=== PATIENT | male | born 1950 | race Caucasian/White ===

== ENCOUNTER 2017-08-30 07:54 | Inpatient (IN) | payer OTHER ==
[2017-08-29 10:13] VITALS: BMI 27.7
[2017-08-30] VITALS (28 sets, daily range): BP systolic 99–125; BP diastolic 50–73; PULSE 70–92; RESP 11–20; Ht 181.6 cm; Wt 91.7 kg
[~2017-08-30] VITALS: Ht 181.6 cm; Wt 91.7 kg
[~2017-08-30 07:54] MED LIST: ATROPINE 1 MG/10 ML SYRINGE IV PRN; CEFAZOLIN 2 GM/50 ML (PMX) 50 ML IVPB SCH; DIPHENHYDRAMINE 50 MG INJ IV PRN; DULO60CA6 PO; EPHEDrine SULFATE 50 MG/5 ML SYG IV PRN; FENTAnyl 50 MCG/ML VIAL IV PRN; HYDROmorphONE (0.2 MG/ML) 10ML SYG IV PRN; LABETALOL HCL 20MG INJ IV PRN; MEPERIDINE 25 MG INJ IV PRN; MIDAZOLAM 1 MG/ML 2 ML INJ IV PRN; ONDANSETRON 4 MG INJ IV PRN; OXYCODONE/ACETAMINOPHEN (5/325) TAB PO PRN; SUGAMMADEX SODIUM 200 MG/2 ML VIAL IV ONE; TAMS0.4C2 PO; TRANEXAMIC ACID 1,000 MG in SOD CHLORIDE 0.9% 100 ML IV SCH; hydrALAzine 20 MG INJ IV PRN; morphine (1 MG/ML) 10ML SYRINGE IV PRN
[2017-08-30] MEDS ORDERED: ETOD400T PO (08:30)
[2017-08-30] MEDS ORDERED: ALEN70TA30 PO (08:31)
[2017-08-30] MEDS ORDERED: DEXAMETHASONE 4 MG/ML 1 ML INJ ONE (09:17)
[2017-08-30] MEDS ORDERED: MIDAZOLAM 1 MG/ML 2 ML INJ ONE ×2 (09:17→10:31)
[2017-08-30] MEDS ORDERED: PROPOFOL 20 ML ONE (09:17)
[2017-08-30] MEDS ORDERED: NEOSTIGMINE 3 MG/3 ML SYRINGE ONE (09:17)
[2017-08-30] MEDS ORDERED: LIDOCAINE 2% (SDV) 5 ML INJ ONE (09:17)
[2017-08-30] MEDS ORDERED: ONDANSETRON 4 MG INJ ONE (09:17)
[2017-08-30] MEDS ORDERED: FENTAnyl 50 MCG/ML VIAL ONE ×2 (09:17→10:30)
[2017-08-30] MEDS ORDERED: ROCURONIUM 50 MG INJ ONE (09:17)
[2017-08-30] MEDS ORDERED: GLYCOPYRROLATE 0.4 MG INJ ONE (09:17)
[2017-08-30] MEDS ORDERED: morphine SULFATE/PF (10 MG/10 ML) INJ ONE (10:22)
[2017-08-30] MEDS ORDERED: BUPIVACAINE 0.5%/EPI (SDV) 30 ML INJ ONE (10:22)
[2017-08-30] MEDS ORDERED: KETOROLAC 30 MG INJ ONE (10:22)
[2017-08-30] MEDS ORDERED: POLYMYXIN/BACITRACIN 1L IRRIG ONE (10:23)
--- NOTE | 2017-08-30 10:31 | HPN ---
Date/Time of Note Date/Time of Note DATE: 08/30/17 TIME: 10:31 Interval H&P Admission Note Pt. seen H&P reviewed: No system changes NEELAM TOSCANO PA-C Aug 30, 2017 10:31
[2017-08-30] MEDS ORDERED: BUPIVACAINE 0.5%/EPI (SDV) 30 ML INJ INJ ONE (11:09)
[2017-08-30] MEDS ORDERED: KETOROLAC 30 MG INJ IV ONE (11:10)
[2017-08-30] MEDS ORDERED: morphine SULFATE/PF (10 MG/10 ML) INJ EPI ONE (11:14)
[2017-08-30] MEDS ORDERED: ROPIVACAINE 0.5 % 30 ML VIAL ONE (11:45)
[2017-08-30] MEDS ORDERED: LIDOCAINE 2%/EPI 30 ML INJ ONE (11:46)
[2017-08-30] MEDS ORDERED: CEFAZOLIN 1 GM INJ ONE (12:01)
[2017-08-30] MEDS: TRANEXAMIC ACID 1,000 MG in SOD CHLORIDE 0.9% 100 ML IV SCH ×2 (12:38→13:25)
--- NOTE | 2017-08-30 12:48 | SIPON ---
Date/Time of Note Date/Time of Note DATE: 08/30/17 TIME: 12:45 Operative Report Preoperative Diagnosis left knee djd Postoperative Diagnosis SAME Operation/Procedure Performed Left total knee replacement Surgeon see signature line facility assistant Dr. Raji Cagle Second assist: NEELAM TOSCANO PA-C Anesthesia: spinal Estimated blood loss: 150 - 200 ml's Transfusion Required none Specimen bone Grafts/Implants DePuy 7 femur, 8 tibia, 12 poly, 38 patella Complications none SHAQ SÁNCHEZ Aug 30, 2017 12:48
--- NOTE | 2017-08-30 13:15 | PDOCDIS ---
Discharge Instructions DIAGNOSIS Discharge Diagnosis Status post left total knee arthroplasty CONDITION Patient Condition: Good HOME CARE INSTRUCTIONS: Diet Instructions: Regular ACTIVITY: Activity Restrictions: Slowly Increase Activity Rest between Activity Avoid heavy lifting No Sexual Activity Do not Drive Do not operate Machinery Do not operate Power Tool Avoid Heavy Housework Keep Limb Elevated (No pillows under the leg. You may apply pillows under the ankle to keep the leg in full extension while lying down.) Weight Bearing (Weight-bear as tolerated using front wheeled walker.) Bathing Restrictions: Shower (Mepilex should remain on until postoperative visit. Do not rub Mepilex dressing off.) FOLLOW UP/APPOINTMENTS Follow-up Plan Follow-up 10-14 days status post surgery at postoperative appointment given to you at your preoperative visit. NEELAM TOSCANO PA-C Aug 30, 2017 13:15
[2017-08-30] MEDS ORDERED: FLUMAZENIL 0.5 MG INJ ONE (13:29)
[2017-08-30] MEDS ORDERED: ASPIRIN (EC) 325 MG TAB PO ONE (13:30)
[2017-08-30] MEDS ORDERED: HYDROmorphONE 0.2 MG/ML PCA IV PRN (13:30)
[2017-08-30] MEDS ORDERED: MEPERIDINE 10 MG/ML 30 ML PCA IV PRN (13:30)
[2017-08-30] MEDS ORDERED: COUMADIN NOTE XX SCH (13:30)
[2017-08-30] MEDS ORDERED: NA PHOSPHATE/BIPHOS 133 ML ENEMA PR PRN (13:30)
[2017-08-30] MEDS ORDERED: TRANEXAMIC ACID 920 MG in SOD CHLORIDE 0.9% 100 ML IVPB ONE ×4 (13:30)
[2017-08-30] MEDS ORDERED: BETHANECHOL 25 MG TAB PO PRN (13:30)
[2017-08-30] MEDS ORDERED: NALOXONE (0.4 MG/ML) INJ IV PRN (13:30)
[2017-08-30] MEDS ORDERED: BISACODYL 10 MG SUPP PR PRN (13:30)
[2017-08-30] MEDS ORDERED: oxyCODONE 5 MG TAB PO PRN (13:30)
[2017-08-30] MEDS ORDERED: SENNA/DOCUSATE NA (8.6MG/50MG) TAB PO PRN (13:30)
[2017-08-30] MEDS ORDERED: ZOLPIDEM 5 MG TAB PO PRN (13:30)
[2017-08-30] MEDS ORDERED: DOCUSATE SODIUM 100 MG CAP PO ONE (13:30)
[2017-08-30] MEDS ORDERED: MAGNESIUM HYDROXIDE 30ML CUP PO PRN (13:30)
[2017-08-30] MEDS ORDERED: DIPHENHYDRAMINE 50 MG INJ IM PRN (13:30)
[2017-08-30] MEDS: CEFAZOLIN 1 GM/50 ML (PMX) 50 ML IVPB SCH ×2 (14:11→21:43)
[2017-08-30] MEDS: ONDANSETRON 4 MG INJ IV SCH ×2 (14:11→20:13)
[2017-08-30] MEDS: ACETAMINOPHEN 1000MG/100ML IV 100 ML IVPB SCH ×2 (14:15→21:10)
--- NOTE | 2017-08-30 15:28 | RADRPT ---
PROCEDURE: LEFT KNEE X-RAY CLINICAL INDICATION: Postop TECHNIQUE: Two views of the right knee were obtained. COMPARISON: None FINDINGS: The patient is status left knee hardware placement. There is near anatomic alignment . There are po stsurgical changes in the subcutaneous soft tissues. There is normal mineralization. No acute fract ure or dislocation is seen. IMPRESSION: 1. Postsurgical changes of the knee status post hardware placement, with near anatomic alignment. RPTAT: AARR Physician Fred Date Time Electronically viewed and signed by Physician Fred on 08/30/2017 15:28 VINCENT/
[2017-08-30] MEDS: DEXTROSE 5%-LR 1,000 ML IV SCH (15:40)
[2017-08-30] MEDS: oxyCODONE 5 MG TAB PO PRN ×2 (16:02→16:53)
--- NOTE | 2017-08-30 17:56 | OPR ---
Date/Time of Note Date/Time of Note DATE: 08/30/17 TIME: 17:51 Operative Report Procedure Date: Aug 30, 2017 Preoperative Diagnosis left knee DJD Postoperative Diagnosis same Operation/Procedure Performed left total knee replacement Surgeon see signature line Credentialing Specialist Dr. aRji Cagle Second Credentialing Specialist: NEELAM TOSCANO PA-C Anesthesia Type: spinal Estimated Blood Loss: 150 - 200 ml's Transfusion none Specimen bone Grafts/Implants DePuy 7 femur, 8 tibia, 38 patella, 12 poly Tubes/Drains none Complications none Pt Condition Post Procedure: stable Indications 67-year-old male with severe osteoarthritis of his left knee and no response to conservative treatment for 1 year Procedure Description The patient was placed supine on the operating room table. The left knee was prepped and draped in the usual manner. Examination of the left knee under anesthesia showed a flexion deformity of 10 and a varus deformity of 10. An anterior approach to the left knee was made. A mid vastus approach was made and the patella displaced laterally without everting it. Medial and lateral collateral ligaments were protected. Using intramedullary alignment, the distal femoral cut was made in 5 of valgus. The femur was prepared for a size 7 component from the Depuy knee system. The notch was cut in the distal femur to accommodate the posterior stabilized femoral component. Osteophytes were removed. The PCL was sacrificed and remnants of the menisci were removed. The tibia was cut using external alignment and the patella cut using a freehand technique. Trials were inserted including a 7 femur, 8 tibia and a 38 patella. 10 mm of polyethylene resulted in full range of motion with mild laxity. 12 mm of polyethylene were needed to create a stable knee from 0-120 with good balance and tracking. Trials were then removed. Antibiotic cement was mixed and final components cemented in place. Excess cement was removed and the knee injected with a combination of Marcaine and Toradol. The knee was closed in layers using #1 Vicryl for arthrotomy fascia, 2-0 Vicryl for subcutaneous tissue and 3-0 Monocryl for the skin. Patient was transferred to the recovery room in stable condition. SHAQ SÁNCHEZ Aug 30, 2017 17:56
--- NOTE | 2017-08-30 20:25 | PN ---
Date/Time of Note Date/Time of Note DATE: 08/30/17 TIME: 20:17 Assessment/Plan VTE Prophylaxis VTE Prophylaxis Intervention: other (Aspirin) Lines/Catheters IV Catheter Type (from Nrsg): Peripheral IV Urinary Cath still in place: Yes Reason Cath still needed: urinary retention Assessment/Plan Chief Complaint/Hosp Course Subjective: No distress. Pain controlled Objective: Vital signs stable Physical exam No pallor adenopathy Regular Clear Bowel sounds present nontender nondistended no rigidity or rebound guarding Left knee dressed mild edema Assessment/plan 1. Postop day 0 left total knee arthroplasty. Stable treat pain, anticoagulation per Ortho 2. DJD Problems: Exam/Review of Systems Vital Signs Vitals Vital Signs Date Time Temp Pulse Resp B/P Pulse Ox O2 Delivery O2 Flow Rate FiO2 08/30/17 20:13 98.6 87 20 120/65 98 08/30/17 18:00 Venturi Mask 2.0 Medications Medications Current Medications Dextrose/Lactated Ringer's (D5-Lr) 1,000 ml @ 80 mls/hr [id number] IV Last administered on 08/30/17 15:40; Admin Dose 80 MLS/HR; Start 08/30/17 at 13:07 Hydromorphone HCl (Dilaudid GANG RIDER) Q4PCA PRN IV SEVERE PAIN 8-10; Start at 13:30; Stop 08/31/17 at 13:29 Meperidine HCl (Demerol GANG RIDER) Q4PCA PRN IV SEVERE PAIN 8-10; Start 08/30/17 at 13:30; Stop 08/31/17 at 13:29 Oxycodone HCl (Roxicodone) 20 mg Q3H PRN PO PAIN LEVEL 8-10; Start 08/30/17 at 13:30 Oxycodone HCl (Roxicodone) 10 mg Q3H PRN PO PAIN LEVEL 4-7; Start 08/30/17 at 13:30 Oxycodone HCl 5 mg 5 mg Q3H PRN PO PAIN LEVEL 1-3 Last administered on 16:53; Admin Dose 5 MG; Start 08/30/17 at 13:30 Acetaminophen (Ofirmev 1000mg/ 100ml Iv) 100 ml @ 400 mls/hr Q8H IVPB Last administered on 08/30/17 14:15; Admin Dose 400 MLS/HR; Start 08/30/17 at 13: 30; Stop 09/01/17 at 05:44 Zolpidem Tartrate (Ambien) 5 mg HS PRN PO INSOMNIA; Start 08/30/17 at 13:30 Ondansetron HCl 4 mg 4 mg Q6H IV Last administered on 08/30/17 14:11; Admin Dose 4 MG; Start 08/30/17 at 13:30; Stop 08/31/17 at 07:31 Cefazolin Sodium (Ancef 1 Gm/50 ml (Pmx)) 50 ml @ 100 mls/hr Q8H IVPB Last administered on 08/30/17 14:11; Admin Dose 100 MLS/HR; Start 08/30/17 at 13: 30; Stop 08/31/17 at 05:59 Miscellaneous Information (Note) NOTE XX ; Start 08/30/17 at 13:30 Aspirin (Ecotrin) 325 mg DAILY PO ; Start 08/31/17 at 09:00 Celecoxib (Celebrex) 100 mg BID PO ; Start 08/31/17 at 09:00 Dexamethasone (Decadron) 4 mg DAILY@07 IV ; Start 08/31/17 at 07:00; Stop at 06:59 Pantoprazole (Protonix Tab) 40 mg DAILY@06 PO ; Start 09/01/17 at 06:00 Docusate Sodium/ Ferrous Fumarate (Cyrus-Sequels) 1 tab BID PO ; Start at 09:00 Docusate Sodium (Colace) 200 mg BID PO ; Start 08/31/17 at 09:00; Stop at 08:59 Simethicone (Mylicon) 80 mg TID PRN PO DISTENSION/GAS/BLOATING; Start at 13:30 Senna/Docusate Sodium (Senokot-S) 2 tab BID PRN PO CONSTIPATION; Start at 13:30 Magnesium Hydroxide (Milk Of Mag) 30 ml HS PRN PO CONSTIPATION; Start at 13:30 Bisacodyl (Dulcolax Supp) 10 mg DAILY PRN [place] CONSTIPATION; Start 08/30/17 at 13:30 Sodium Biphosphate/ Sodium Phosphate (Fleet Enema) 133 ml DAILY PRN [place] CONSTIPATION; Start 08/30/17 at 13:30 Diphenhydramine HCl (Benadryl) 25 mg Q4H PRN IM ITCHING OR RASH; Start at 13:30 Ketorolac Tromethamine (Toradol) 15 mg DAILY@06 PRN IV PAIN; Start 08/31/17 at 06:00; Stop 09/04/17 at 05:59 Bupivacaine HCl/ Epinephrine Bitart (Marcaine 0.25%/ Epi (Sdv) 30 ml) 20 ml DAILY@06 PRN INJ ADMINSTER BY SURGEON ONLY; Start 08/31/17 at 06:00; Stop at 05:59 Naloxone HCl (Narcan) 0.2 mg Q2M PRN IV DECREASED REPIRATORY RATE; Start at 13:30 ENEDINA CEDEÑO MD Aug 30, 2017 20:25
[2017-08-31] MEDS: ONDANSETRON 4 MG INJ IV SCH ×2 (01:30→07:30)
[2017-08-31] MEDS: DEXTROSE 5%-LR 1,000 ML IV SCH ×2 (01:37→14:07)
[2017-08-31] MEDS: oxyCODONE 5 MG TAB PO PRN ×3 (03:59→16:00)
[2017-08-31 04:56] LABS: ABNORMAL IP MESSAGE 1; BASOPHILS % 0.1 % (0.0-2.0); HEMATOCRIT 33.2 % (42.0-52.0); LYMPHOCYTES % 14.6 % (15.0-51.0); MEAN CORPUSCULAR HEMOGLOBIN 31.3 pg (29.0-33.0); MEAN CORPUSCULAR HGB CONC 33.1 g/dl (32.0-37.0); MEAN CORPUSCULAR VOLUME 94.6 fl (82.0-101.0); MONOCYTE # 0.7 10^3/ul (0.3-0.9); MONOCYTES % 9.4 % (0.0-11.0); NEUTROPHIL # 5.2 10^3/ul (1.6-7.5); NEUTROPHILS % 75.5 % (39.0-77.0); PLATELET COUNT 87 10^3/UL (140-415); POSITIVE DIFF @See below; RED BLOOD COUNT 3.51 10^6/ul (4.70-6.10); RED CELL DISTRIBUTION WIDTH 12.5 % (11.5-14.5); WHITE BLOOD COUNT 6.9 10^3/ul (4.8-10.8)
[2017-08-31] MEDS: ACETAMINOPHEN 1000MG/100ML IV 100 ML IVPB SCH ×2 (05:37→14:11)
[2017-08-31 05:44] LABS: ALBUMIN 2.9 g/dl (3.3-4.9); ALBUMIN/GLOBULIN RATIO 1.16; BILIRUBIN,INDIRECT 0.5 mg/dl (0-1.1); BILIRUBIN,TOTAL 0.5 mg/dl (0.2-1.3); CALCIUM 8.5 mg/dl (8.4-10.2); CREATININE 1.22 mg/dl (0.61-1.24); MAGNESIUM 1.7 mg/dl (1.7-2.5); PHOSPHORUS 3.5 mg/dl (2.5-4.9); POTASSIUM 4.2 mmol/L (3.5-5.1); TOTAL PROTEIN 5.4 g/dl (6.1-8.1)
[2017-08-31] MEDS ORDERED: BUPIVACAINE 0.25%/EPI (SDV) 30 ML INJ INJ PRN (06:00)
[2017-08-31] MEDS ORDERED: KETOROLAC 15 MG INJ IV PRN (06:00)
[2017-08-31] MEDS: CEFAZOLIN 1 GM/50 ML (PMX) 50 ML IVPB SCH (06:07)
[2017-08-31 06:14] LABS: THYROID STIMULATING HORMONE 0.598 MIU/L (0.465-4.680)
[2017-08-31] MEDS ORDERED: DEXAMETHASONE 4 MG/ML 1 ML INJ IV SCH (07:00)
[2017-08-31 07:37] VITALS: BP 99/59; RESP 20
[2017-08-31] MEDS ORDERED: DOCUSATE SODIUM 100 MG CAP PO SCH (09:00)
[2017-08-31] MEDS ORDERED: CELECOXIB 200 MG CAP PO SCH (09:00)
[2017-08-31] MEDS ORDERED: FERROUS FUMARATE (SR) TAB PO SCH (09:00)
[2017-08-31] MEDS ORDERED: ASPIRIN (EC) 325 MG TAB PO SCH (09:00)
--- NOTE | 2017-08-31 09:06 | PN ---
Date/Time of Note Date/Time of Note DATE: 08/31/17 TIME: 08:54 24 hour Interval Summary POD#1 s/p Left TKA Subjective: Patient doing well No acute events overnight Pain is well controlled Dressing: clean, dry, and intact, no erythema Sensation intact to light touch in a sural, saphenous, deep peroneal, superficial peroneal, medial and lateral plantar nerve distribution. Motor is intact, patient able to dorsiflex and plantarflex ankle and extend and flex great toe. Dorsalis Pedis pulse +2, Brisk capillary refill. Compartments are soft. Calves non tender to palpation bilaterally. Antibiotics: Ancef x24 hr from surgery Assesment and Plan: POD#1 s/p Left TKA. Doing well. -Post op H&H stable -Chronic thrombocytopenia. -PT/OT -Joints pain control protocol -DVT prophylaxis: SCD's and ASA -Weight bearing status: as tolerated -Abx: 24h vanc/ancef -Diet: ADAT -Lam: Dced -Discharge planning consult Planned Discharge Date: 08/31/17 Discharge to home Physical Exam Vital Signs Date Time Temp Pulse Resp B/P Pulse Ox O2 Delivery O2 Flow Rate FiO2 08/31/17 07:37 97.6 61 20 99/59 96 08/30/17 20:10 Nasal Cannula 2.0 Intake and Output 08/30/17 08/30/17 08/31/17 15:00 23:00 07:00 Intake Total 220 ml 1288 ml 1140 ml Output Total 900 ml 1250 ml Balance -680 ml 1288 ml -110 ml VTE Prophylaxis VTE Prophylaxis Intervention: ambulation, SCD's, other (ASA) Lines/Catheters IV Catheter Type: Saline Lock Lam in Place: No Results Result Diagram: 08/31/17 0431 08/31/17 0431 Results 24hrs Laboratory Tests Test 08/31/17 04:31 White Blood Count 6.9 Red Blood Count 3.51 L Hemoglobin 11.0 L Hematocrit 33.2 L Mean Corpuscular Volume 94.6 Mean Corpuscular Hemoglobin 31.3 Mean Corpuscular Hemoglobin Concent 33.1 Red Cell Distribution Width 12.5 Platelet Count 87 L Mean Platelet Volume 12.0 H Neutrophils % 75.5 Lymphocytes % 14.6 L Monocytes % 9.4 Eosinophils % 0.0 Basophils % 0.1 Nucleated Red Blood Cells % 0.0 Neutrophils # 5.2 Lymphocytes # 1.0 Monocytes # 0.7 Eosinophils # 0.0 Basophils # 0.0 Nucleated Red Blood Cells # 0.0 Sodium Level 140 Potassium Level 4.2 Chloride Level 108 Carbon Dioxide Level 30 Anion Gap 6 L Blood Urea Nitrogen 18 Creatinine 1.22 Glucose Level 104 Calcium Level 8.5 Phosphorus Level 3.5 Magnesium Level 1.7 Total Bilirubin 0.5 Direct Bilirubin 0.00 Indirect Bilirubin 0.5 Aspartate Amino Transf (AST/SGOT) 18 Alanine Aminotransferase (ALT/SGPT) 32 Alkaline Phosphatase 42 Total Protein 5.4 L Albumin 2.9 L Globulin 2.50 Albumin/Globulin Ratio 1.16 Thyroid Stimulating Hormone (TSH) 0.598 Medications Medications Home Meds Reported Medications Alendronate Sodium* (Fosamax*) 70 Mg Tablet, 70 MG PO EVERY , #4 TAB 08/30/17 Etodolac (Etodolac) 400 Mg Tablet, 400 MG PO BID, TAB 08/30/17 Tamsulosin Hcl* (Tamsulosin Hcl*) 0.4 Mg Cap.er.24h, 0.4 MG PO HS, CAP 08/29/17 Duloxetine Hcl* (Cymbalta*) 60 Mg Capsule.dr, 60 MG PO DAILY, CAP 08/29/17 MAY GOINS MD Aug 31, 2017 09:04
--- NOTE | 2017-08-31 11:46 | CONS ---
Date/Time of Note Date/Time of Note DATE: 08/31/17 TIME: 11:42 Consult Date/Type/Reason Admit Date/Time Aug 30, 2017 at 07:54 Initial Consult Date Subjective Seen by orthopedic surgery team today, no acute events overnight. Objective Vital Signs Date Time Temp Pulse Resp B/P Pulse Ox O2 Delivery O2 Flow Rate FiO2 08/31/17 07:37 97.6 61 20 99/59 96 08/30/17 20:10 Nasal Cannula 2.0 Intake and Output 08/30/17 08/30/17 08/31/17 15:00 23:00 07:00 Intake Total 220 ml 1288 ml 1140 ml Output Total 900 ml 1250 ml Balance -680 ml 1288 ml -110 ml Exam No pallor adenopathy Regular Clear Bowel sounds present nontender nondistended no rigidity or rebound guarding Left knee dressed mild edema Results/Medications Result Diagram: 08/31/17 0431 08/31/17 0431 Results 24 hrs Laboratory Tests Test 08/31/17 04:31 White Blood Count 6.9 Red Blood Count 3.51 L Hemoglobin 11.0 L Hematocrit 33.2 L Mean Corpuscular Volume 94.6 Mean Corpuscular Hemoglobin 31.3 Mean Corpuscular Hemoglobin Concent 33.1 Red Cell Distribution Width 12.5 Platelet Count 87 L Mean Platelet Volume 12.0 H Neutrophils % 75.5 Lymphocytes % 14.6 L Monocytes % 9.4 Eosinophils % 0.0 Basophils % 0.1 Nucleated Red Blood Cells % 0.0 Neutrophils # 5.2 Lymphocytes # 1.0 Monocytes # 0.7 Eosinophils # 0.0 Basophils # 0.0 Nucleated Red Blood Cells # 0.0 Sodium Level 140 Potassium Level 4.2 Chloride Level 108 Carbon Dioxide Level 30 Anion Gap 6 L Blood Urea Nitrogen 18 Creatinine 1.22 Glucose Level 104 Calcium Level 8.5 Phosphorus Level 3.5 Magnesium Level 1.7 Total Bilirubin 0.5 Direct Bilirubin 0.00 Indirect Bilirubin 0.5 Aspartate Amino Transf (AST/SGOT) 18 Alanine Aminotransferase (ALT/SGPT) 32 Alkaline Phosphatase 42 Total Protein 5.4 L Albumin 2.9 L Globulin 2.50 Albumin/Globulin Ratio 1.16 Thyroid Stimulating Hormone (TSH) 0.598 Medications Current Medications Dextrose/Lactated Ringer's (D5-Lr) 1,000 ml @ 80 mls/hr [id number] IV Last administered on 08/30/17 15:40; Admin Dose 80 MLS/HR; Start 08/30/17 at 13:07 Hydromorphone HCl (Dilaudid HEAD REFRIGERATION ENGINEER) Q4PCA PRN IV SEVERE PAIN 8-10; Start at 13:30; Stop 08/31/17 at 13:29 Meperidine HCl (Demerol HEAD REFRIGERATION ENGINEER) Q4PCA PRN IV SEVERE PAIN 8-10; Start 08/30/17 at 13:30; Stop 08/31/17 at 13:29 Oxycodone HCl (Roxicodone) 20 mg Q3H PRN PO PAIN LEVEL 8-10; Start 08/30/17 at 13:30 Oxycodone HCl (Roxicodone) 10 mg Q3H PRN PO PAIN LEVEL 4-7 Last administered on 08/31/17 09:30; Admin Dose 10 MG; Start 08/30/17 at 13:30 Oxycodone HCl 5 mg 5 mg Q3H PRN PO PAIN LEVEL 1-3 Last administered on 16:53; Admin Dose 5 MG; Start 08/30/17 at 13:30 Acetaminophen (Ofirmev 1000mg/ 100ml Iv) 100 ml @ 400 mls/hr Q8H IVPB Last administered on 08/31/17 05:37; Admin Dose 400 MLS/HR; Start 08/30/17 at 13: 30; Stop 09/01/17 at 05:44 Zolpidem Tartrate (Ambien) 5 mg HS PRN PO INSOMNIA Last administered on 20:12; Admin Dose 5 MG; Start 08/30/17 at 13:30 Miscellaneous Information (Note) NOTE XX ; Start 08/30/17 at 13:30 Aspirin (Ecotrin) 325 mg DAILY PO Last administered on 08/31/17 09:29; Admin Dose 325 MG; Start 08/31/17 at 09:00 Celecoxib (Celebrex) 100 mg BID PO ; Start 08/31/17 at 09:00 Dexamethasone (Decadron) 4 mg DAILY@07 IV Last administered on 08/31/17 06:37 ; Admin Dose 4 MG; Start 08/31/17 at 07:00; Stop 09/03/17 at 06:59 Pantoprazole (Protonix Tab) 40 mg DAILY@06 PO ; Start 09/01/17 at 06:00 Docusate Sodium/ Ferrous Fumarate (Cyrus-Sequels) 1 tab BID PO Last administered on 08/31/17 09:30; Admin Dose 1 TAB; Start 08/31/17 at 09:00 Docusate Sodium (Colace) 200 mg BID PO Last administered on 08/31/17 09:29; Admin Dose 200 MG; Start 08/31/17 at 09:00; Stop 09/03/17 at 08:59 Simethicone (Mylicon) 80 mg TID PRN PO DISTENSION/GAS/BLOATING; Start at 13:30 Senna/Docusate Sodium (Senokot-S) 2 tab BID PRN PO CONSTIPATION; Start at 13:30 Magnesium Hydroxide (Milk Of Mag) 30 ml HS PRN PO CONSTIPATION; Start at 13:30 Bisacodyl (Dulcolax Supp) 10 mg DAILY PRN [place] CONSTIPATION; Start 08/30/17 at 13:30 Sodium Biphosphate/ Sodium Phosphate (Fleet Enema) 133 ml DAILY PRN [place] CONSTIPATION; Start 08/30/17 at 13:30 Diphenhydramine HCl (Benadryl) 25 mg Q4H PRN IM ITCHING OR RASH; Start at 13:30 Ketorolac Tromethamine (Toradol) 15 mg DAILY@06 PRN IV PAIN; Start 08/31/17 at 06:00; Stop 09/04/17 at 05:59 Bupivacaine HCl/ Epinephrine Bitart (Marcaine 0.25%/ Epi (Sdv) 30 ml) 20 ml DAILY@06 PRN INJ ADMINSTER BY SURGEON ONLY; Start 08/31/17 at 06:00; Stop at 05:59 Naloxone HCl (Narcan) 0.2 mg Q2M PRN IV DECREASED REPIRATORY RATE; Start at 13:30 Assessment/Plan Chief Complaint/Hosp Course Assessment/plan 1. Postop day 1 left total knee arthroplasty. -Stable, continue physical therapy, treat pain, anticoagulation per Ortho -Likely discharge home later this afternoon 2. DJD Problems: HECTOR DAVE Aug 31, 2017 11:45
[2017-08-31 15:00] VITALS: BP 116/61; RESP 20
[2017-09-01] MEDS ORDERED: PANTOPRAZOLE (EC) 40 MG TAB PO SCH (06:00)
--- NOTE | 2017-09-01 07:56 | DS ---
Date/Time of Note Date/Time of Note DATE: 09/01/17 TIME: 07:54 Discharge Summary Admission/Discharge Info Admit Date/Time Aug 30, 2017 at 07:54 Discharge Date/Time Aug 31, 2017 at 17:30 Discharge Diagnosis Status post left total knee arthroplasty Patient Condition: Good Hospital Course On the day of admission, the patient underwent left total knee arthroplasty Intraoperative complications: None Postoperative complications: None The patient was given prophylactic antibiotics and anticoagulants. On the day of surgery and first postoperative day patient was started on gait training and was taught usual restrictions following knee replacement On postoperative day 1 dressing was clean dry and intact. No complications were observed. On the day of discharge, the wound was clean and healing well; there was no sign of infection. Wound care instructions were discussed with the patient. Discharge Temperature: 97.5 Discharge White Blood Cell Count: 6.9 Discharge Hemoglobin: 11 The patient was discharged home with home health. Arrangements were made for visiting nurses and home health/physical therapy. The patient will be seen in office at scheduled postoperative evaluation date given on their preoperative exam. Should patient complain of any problems prior to scheduled postoperative evaluation date, they may call into outpatient clinic to determine if they need to be scheduled at sooner appointment to be seen immediately if needed. Discharge medications: As per medication reconciliation form Diet: Same as preadmission diet. This is Neelam Gonzalez PA-C dictating discharge summary for []. Home Meds Reported Medications Alendronate Sodium* (Fosamax*) 70 Mg Tablet, 70 MG PO EVERY , #4 TAB 08/30/17 Etodolac (Etodolac) 400 Mg Tablet, 400 MG PO BID, TAB 08/30/17 Tamsulosin Hcl* (Tamsulosin Hcl*) 0.4 Mg Cap.er.24h, 0.4 MG PO HS, CAP 08/29/17 Duloxetine Hcl* (Cymbalta*) 60 Mg Capsule.dr, 60 MG PO DAILY, CAP 08/29/17 Follow-up Plan Follow-up 10-14 days status post surgery at postoperative appointment given to you at your preoperative visit. Primary Care Provider Care Physician No Primary NEELAM TOSCANO PA-C Sep 01, 2017 07:56
== END 2017-08-31 17:30 | disposition home health service (06) | DRG 470 ==
LOC: REC 07:54 → MS1 15:15
PROVIDERS: ADMIT Orthopaedic Surgery; ATTEND Orthopaedic Surgery
PROC: 0SRD0JZ Replacement of Left Knee Joint with Synthetic Substitute, Open Approach (ICD-10-PCS; principal; 2017-08-30 10:00)
DX: M17.12 Unilateral primary osteoarthritis, left knee (principal); D69.6 Thrombocytopenia, unspecified
CPT/HCPCS: 73560; 80053; 82306; 83735; 84100; 84443; 85025; 86850; 86900; 86901; 87081; 87086; 88304; 88311; 97116; 97161; 97166; C1776; J0131; J0690; J1100; J1885; J2250; J2274; J2405; J2710; J2795; J3010; J7121

== ENCOUNTER 2018-07-20 06:39 | Inpatient (IN) | END 2018-07-21 15:00 | disposition home or self-care (01) | DRG 470 ==